=== PATIENT | male | born 1995 | race Caucasian/White ===

== ENCOUNTER 2016-08-31 17:23 | Emergency (ER) | payer OTHER ==
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
[2016-08-31 17:41] VITALS: BP 139/90; PULSE 85; RESP 16; TEMP 99; O2SAT 94
== END 2016-08-31 17:48 | disposition home or self-care (01) ==
DX: Z48.02 Encounter for removal of sutures (principal); F17.200 Nicotine dependence, unspecified, uncomplicated